=== PATIENT | male | born 1950 | race Caucasian/White ===

== ENCOUNTER 2022-06-21 00:20 | Emergency (ER) | payer MEDICARE ==
[2022-06-21 00:26] VITALS: TEMP 97.4
[2022-06-21] MEDS ORDERED: SODIUM CHLORIDE 0.9% 1,000 ML IV ONE (00:29)
[2022-06-21 01:03] LABS: Basophils # (A) 0.1 k/uL (0-0.2); Basophils % (A) 0 %; Eosinophils # (A) 0.2 k/uL (0-0.7); Eosinophils % (A) 2 %; HCT 38.8 % (39.0-53.0); HGB 13.7 gm/dL (13.0-17.5); Lymphocytes # (A) 2.6 k/uL (1.0-4.8); Lymphocytes % (A) 19 %; MCH 33.2 pg (25.0-35.0); MCHC 35.2 g/dL (31.0-37.0); MCV 94.2 fL (80.0-100.0); Mean Platelet Volume 8.3; Monocytes % (A) 7 %; Neutrophils # (A) 9.5 k/uL (1.3-7.7); Neutrophils % (A) 69 %; Platelet Count 246 k/uL (150-450); RBC 4.12 m/uL (4.30-5.90); RDW 13.3 % (11.5-15.5); WBC 13.7 k/uL (3.8-10.6)
[2022-06-21 01:19] LABS: INR 1.1 (<1.2); Partial Thromboplastin Time 20.2 sec (22.0-30.0); Prothrombin Time 11.6 sec (9.0-12.0)
--- NOTE | 2022-06-21 01:19 | ED ---
General Adult HPI - General Chief complaint: GI Bleed Stated complaint: Syncope Time Seen by Provider: 06/21/22 00:28 Source: patient, RN notes reviewed, old records reviewed Mode of arrival: ambulatory - History of Present Illness Initial comments: 71-year-old male with syncopal episode from home. Patient had colonoscopy performed earlier today. He had developed several episodes of rectal bleeding which was bright red. He stood from the toilet and passed out striking the right side of his head. Momentary loss consciousness. No anticoagulation. He had several episodes of rectal bleeding prior to this. He is not anticoagulated. - Related Data Allergies Allergy/AdvReac Type Severity Reaction Status Date / Time aspirin AdvReac Anaphylaxis Verified 06/21/22 00:26 Review of Systems ROS Statement: Those systems with pertinent positive or pertinent negative responses have been documented in the HPI. ROS Other: All systems not noted in ROS Statement are negative. Past Medical History Past Medical History: No Reported History History of Any Multi-Drug Resistant Organisms: None Reported Additional Past Surgical History / Comment(s): colonscopy 2021 Past Psychological History: No Psychological Hx Reported Smoking Status: Never smoker Past Alcohol Use History: Rare Past Drug Use History: None Reported General Exam General appearance: alert, in no apparent distress Head exam: Present: normocephalic, other (Abrasion and superficial laceration to the right frontal scalp) ENT exam: Present: mucous membranes dry Neck exam: Present: normal inspection Respiratory exam: Present: normal lung sounds bilaterally. Absent: respiratory distress, wheezes Cardiovascular Exam: Present: regular rate, normal rhythm GI/Abdominal exam: Present: soft. Absent: distended, tenderness, guarding, rebound Extremities exam: Present: normal inspection, normal capillary refill. Absent: pedal edema Neurological exam: Present: alert, oriented X3, CN II-XII intact. Absent: motor sensory deficit Psychiatric exam: Present: normal affect, normal mood Skin exam: Present: warm, dry Course Vital Signs 06/21/22 00:22 Temperature 97.4 F L Pulse Rate 72 Respiratory 18 Rate Blood Pressure 88/63 O2 Sat by Pulse 98 Oximetry EKG Findings - EKG Comments: EKG Findings:: EKG: Sinus rhythm, rate of 66, LA interval 173, QRS duration 94, QTC 416, no ST segment elevation. - EKG Results: EKG: interpreted by ERMD Procedures - Laceration Laceration #1 Consent Obtained: verbal consent Indication: laceration Site: face Size (cm): 2 Description: stellate Depth: simple, single layer Pre-repair: irrigated extensively, deep structures intact Type of Sutures: other (dermabond) Patient Tolerated Procedure: well Medical Decision Making - Medical Decision Making 71-year-old male with GI bleed, syncopal episode. Patient's given a liter normal saline awaiting testing. He does have hemoglobin 13.7. Blood pressure responds nicely. Patient has no further rectal bleeding and symptoms have im proved. He did have a head injury, head CT was performed which was negative for acute intracranial hemorrhage or mass effect. 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 Patient monitored in the emergency department. My plan was to admit this patient for repeat hemoglobin and close monitoring patient prefers discharge. He states he feels completely back to normal and will monitor symptoms closely. - Lab Data Result diagrams: 06/21/22 00:41 06/21/22 00:41 Lab Results 06/21/22 06/21/22 06/21/22 Range/Units 00:35 00:40 00:41 WBC 13.7 H (3.8-10.6) k/uL RBC 4.12 L (4.30-5.90) m/uL Hgb 13.7 (13.0-17.5) gm/dL Hct 38.8 L (39.0-53.0) % MCV 94.2 (80.0-100.0) fL MCH 33.2 (25.0-35.0) pg MCHC 35.2 (31.0-37.0) g/dL RDW 13.3 (11.5-15.5) % Plt Count 246 (150-450) k/uL MPV 8.3 Neutrophils % 69 % Lymphocytes % 19 % Monocytes % 7 % Eosinophils % 2 % Basophils % 0 % Neutrophils # 9.5 H (1.3-7.7) k/uL Lymphocytes # 2.6 (1.0-4.8) k/uL Monocytes # 1.0 (0-1.0) k/uL Eosinophils # 0.2 (0-0.7) k/uL Basophils # 0.1 (0-0.2) k/uL PT (9.0-12.0) sec INR (<1.2) APTT (22.0-30.0) sec Sodium (137-145) mmol/L Potassium (3.5-5.1) mmol/L Chloride (98-107) mmol/L Carbon Dioxide (22-30) mmol/L Anion Gap mmol/L BUN (9-20) mg/dL Creatinine (0.66-1.25) mg/dL Est GFR (CKD-EPI)AfAm (>60 ml/min/1.73 sqM) Est GFR (CKD-EPI)NonAf (>60 ml/min/1.73 sqM) Glucose (74-99) mg/dL Calcium (8.4-10.2) mg/dL Magnesium (1.6-2.3) mg/dL Total Bilirubin (0.2-1.3) mg/dL AST (17-59) U/L ALT (4-49) U/L Alkaline Phosphatase (38-126) U/L Total Protein (6.3-8.2) g/dL Albumin (3.5-5.0) g/dL Blood Type AB Positive Blood Type Confirm AB Positive Blood Type Recheck No Previous Record Bld Type Recheck Status CABO Indicated Antibody Screen NEGATIVE Spec Expiration Date 06/24/2022 - 233406/21/22 06/21/22 Range/Units 00:41 00:41 WBC (3.8-10.6) k/uL RBC (4.30-5.90) m/uL Hgb (13.0-17.5) gm/dL Hct (39.0-53.0) % MCV (80.0-100.0) fL MCH (25.0-35.0) pg MCHC (31.0-37.0) g/dL RDW (11.5-15.5) % Plt Count (150-450) k/uL MPV Neutrophils % % Lymphocytes % % Monocytes % % Eosinophils % % Basophils % % Neutrophils # (1.3-7.7) k/uL Lymphocytes # (1.0-4.8) k/uL Monocytes # (0-1.0) k/uL Eosinophils # (0-0.7) k/uL Basophils # (0-0.2) k/uL PT 11.6 (9.0-12.0) sec INR 1.1 (<1.2) APTT 20.2 L (22.0-30.0) sec Sodium 135 L (137-145) mmol/L Potassium 4.0 (3.5-5.1) mmol/L Chloride 105 (98-107) mmol/L Carbon Dioxide 20 L (22-30) mmol/L Anion Gap 10 mmol/L BUN 23 H (9-20) mg/dL Creatinine 1.04 (0.66-1.25) mg/dL Est GFR (CKD-EPI)AfAm 85 (>60 ml/min/1.73 sqM) Est GFR (CKD-EPI)NonAf 73 (>60 ml/min/1.73 sqM) Glucose 186 H (74-99) mg/dL Calcium 8.7 (8.4-10.2) mg/dL Magnesium 1.9 (1.6-2.3) mg/dL Total Bilirubin 0.7 (0.2-1.3) mg/dL AST 27 (17-59) U/L ALT 18 (4-49) U/L Alkaline Phosphatase 42 (38-126) U/L Total Protein 6.0 L (6.3-8.2) g/dL Albumin 3.5 (3.5-5.0) g/dL Blood Type Blood Type Confirm Blood Type Recheck Bld Type Recheck Status Antibody Screen Spec Expiration Date Disposition Clinical Impression: Hematochezia, Syncope Disposition: HOME SELF-CARE Condition: Fair Instructions (If sedation given, give patient instructions): Gastrointestinal Bleeding (ED) Is patient prescribed a controlled substance at d/c from ED?: No Referrals: Dayron Cline MD [Primary Care Provider] - 1-2 days Deana Neely MD [STAFF PHYSICIAN] - 1-2 days Time of Disposition: 03:32
[2022-06-21 01:21] LABS: Albumin 3.5 g/dL (3.5-5.0); Calcium 8.7 mg/dL (8.4-10.2); Magnesium 1.9 mg/dL (1.6-2.3); Total Bilirubin 0.7 mg/dL (0.2-1.3)
--- NOTE | 2022-06-21 01:55 | CT ---
EXAMINATION TYPE: CT brain ananth weinstein DATE OF EXAM: 06/21/2022 COMPARISON: None HISTORY: Fall/syncope CT DLP: 1690.5 mGycm Automated exposure control for dose reduction was used. Images of the brain obtained without contrast. There is some cerebral cortical atrophy. There is no mass effect or midline shift. No sign of intracr anial hemorrhage. There is 1 cm lacunar infarct anterior right internal capsule. There is an addition al 5 mm lacunar infarct anterior right internal capsule. There is small area of hypodensity in the ri ght posterior frontal lobe convexity consistent with old infarct. The cervical vertebra have normal alignment. There is degenerative disc space narrowing at C5-6 and C 6-7 with spurring of the endplates. There is hypertrophic multilevel cervical facet arthropathy. The skull base is intact. There is normal aeration of the mastoid sinuses. 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 No acute intracranial abnormality. Small area of 1.5 cm cortical encephalomalacia right posterior frontal lobe convexity. Spondylotic changes in the lower cervical spine. No fracture.
[2022-06-21] MEDS ORDERED: TOPICAL SKIN ADHESIVE 1 EACH AMP TOPICAL ONE (02:03)
[2022-06-21 03:42] VITALS: BP 112/80; PULSE 78; RESP 16
== END 2022-06-21 03:41 | disposition home or self-care (01) ==
LOC: EC 00:20
DX: K92.1 Melena (principal); R55 Syncope and collapse
CPT/HCPCS: 12011; 36415; 70450; 72125; 80053; 83735; 85025; 85610; 85730; 86850; 86900; 86901; 93005; 96360; 99285